=== PATIENT | female | born 1975 | race Caucasian/White ===

== ENCOUNTER 2016-08-02 07:47 | Emergency (ER) | payer BC ==
[2016-08-02] MEDS ORDERED: ORPHENADRINE CITRATE 30 MG/ML VIAL IM ONE (08:10)
[2016-08-02] MEDS ORDERED: KETOROLAC TROMETHAMINE 30 MG/ML VIAL IM ONE (08:10)
[2016-08-02] MEDS ORDERED: MORPHINE SULFATE 4 MG/ML SYRG IM ONE (08:10)
--- NOTE | 2016-08-02 08:21 | ERNOTE ---
Back Pain ER HPI Date of Service: 08/02/16 Presenting Symptoms: injury/pain to back Time Seen by Provider: 08/02/16 08:09 Source: patient Exam Limitations: no limitations Immunizations: IMMUNIZATION HX Immunizations Up to Date Yes History of Influenza Vaccine Yes Allergies/Adverse Reactions: Allergies latex Allergy (Severe, Verified 08/02/16 07:54) Hives codeine Adverse Reaction (Intermediate, Verified 08/02/16 07:54) Vomiting hydrocodone bitartrate [From Vicodin] Adverse Reaction (Intermediate, Verified 08/02/16 07:54) vomit Penicillins Adverse Reaction (Intermediate, Verified 08/02/16 07:54) vomit Sulfa (Sulfonamide Antibiotics) [Sulfa(Sulfonamide Antibiotics)] Adverse Reaction (Intermediate, Verified 08/02/16 07:54) Nausea Home Medications: HOME MEDICATIONS HYDROcodone/ACETAMINOPHEN [[place] 5-325] 1 each PO Q6H PRN #15 tablet 08/02/16 [ Last Taken Unknown] Narrative: Patient presents to the ED for low back pain. She realtes that yesterday she was walking th dog, tripped over the leash and had acute onset of low back pain. No actual fall, twisting motion. No acute focal N/T/W. No loss of bowel or bladder control. No abdominal pain. No urinary Sx. Has had back pain before. No direct blow. No fever. Left greater than right. No upper back pain. Took Alleve and Flexeril at home but it woke her up at 3am and has been hurting since then. No radiation of pain into the legs Timing: Reports: constant, other - fluctuating Quality/Severity: Reports: severe Location of pain: Reports: lower back, no radiation Recent Injury?: Reports: yes Possible Precipitating Factor: Reports: turning/bending Modifying Factors - (Improves): Reports: other - rest Modifying Factors - (Worsens): Reports: movement to right, movement to left, movement flexion. Denies: cough/deep breaths Associated Symptoms: Denies: fever/chills, constipation/incontinence, nausea/ vomiting, problems urinating, numbess/weakness in legs Prior Treament: Denies: recently seen Review of Systems - Review of Systems Constitutional: Absent: fever Respiratory: Absent: shortness of breath Cardiology: Absent: chest pain Gastrointestinal/Abdominal: Absent: abdominal pain Genitourinary: Absent: dysuria Musculoskeletal: Present: back pain Skin: Absent: rash Neurological: Absent: weakness, numbness - Patient's Past Medical History Patient History - Medical: Chronic Pain, Headache, Migraines Patient History - Cardiac/Respiratory: Asthma Patient History - Cancer: No Hx of Cancer Patient History - Surgical Procedures: Cholecystectomy, Other Patient History - Other: None LMP (Calendar): 12/23/14 - Social History Living Situations: home Abuse History: No History of abuse Psych History: No pertinent hx Does anyone smoke in the home?: No Alcohol Use: none Drug Use: none - Immunizations Immunizations Up to Date: Yes History of Influenza Vaccine: Yes Physical Exam - Physical Exam General Appearance: Present: alert, no apparent distress, other - pain with palpation of muscles of low back and with movement Eye Exam: Normal inspection: bilateral, PERRL: bilateral Ears, Nose, Throat: Present: normal ENT inspection Neck: Present: normal inspection Respiratory: Present: no respiratory distress, normal breath sounds, lungs clear Cardiovascular/Chest: Present: regular rate, rhythm Gastrointestinal/Abdominal: Present: normal bowel sounds, nontender, nondistended, soft. Absent: tenderness Back Exam: Present: normal inspection, no CVA tenderness, muscle spasm, other - There is completely reproducible tenderness paraspinal lumbar muscualture left and right. She is significantly tender here. No localizing point vertebral tenderness. No upper back tenderness.. Absent: CVA tenderness (R), CVA tenderness (L) Extremity Exam: Present: normal inspection, normal range of motion Neurological Exam: Present: alert, normal mood/affect, no motor/sensory deficits , oxyacetylene welder II-XII nml as tested, other - Sensation LT intact. Patellar tendon reflexes equal and symmetric. She can ambulate but antalgic. Can stand on toes and heels. No motor or sensory deficits. No evidence of cauda-equina syndrome. No focal motor or sensory deficits.. Absent: motor weakness Skin Exam: Present: normal color. Absent: skin rash ED Progress - Vital Signs Patient's Vital Signs:: I have reviewed the patient's vital signs. Vital Signs: Vital Signs 08/02/16 07:50 Temperature 37.2 C Pulse Rate 86 Respiratory 12 Rate Blood Pressure 113/60 O2 Sat by Pulse 99 Oximetry - X-Ray X-Ray #1 X-Ray: lumbosacral Interpretation: Interp. by me X-ray Comments: I reviewed official x-ray report. - Progress/Reassessment Chief Complaint: Back Pain Progress Note-Subjective: 08/02/16 09:18 Improved on re-check. She wishes to go home. She states she can take Pierce without allergic reaction but just takes half a pill. She would like some Vicodin to go home with. She has flexeril at home. Nothing to suggest infectious process, diskiitis or cauda equina syndrome. I discussed warning signs and reasons to return as well as the need for close f/u. Departure Clinical Impression: Musculoskeletal pain - Departure Disposition: Home self-care Condition: Stable Instructions: Back Pain, Adult Additional Instructions: Rest. You have indicated you can take hydrocodone and do not have an allergy. Take your Flexeril as directed. Use anti inflammatory also. Follow-up with your doctor within 48 hours for a re-check. Return here for fever, increased pain, numbness, tingling, weakness, trouble with bowel or bladder control or if your condition worsens or changes in any way. Referrals: Abel Mora MD [Primary Care Provider] - Prescriptions: HYDROcodone/ACETAMINOPHEN [[place] 5-325] 1 each PO Q6H PRN #15 tablet PRN Reason: Pain
[2016-08-02] MEDS ORDERED: MORPHINE SULFATE 4 MG/ML SYRG ONE (08:22)
[2016-08-02] MEDS ORDERED: ORPHENADRINE CITRATE 30 MG/ML VIAL ONE (08:22)
[2016-08-02] MEDS ORDERED: KETOROLAC TROMETHAMINE 30 MG/ML VIAL ONE (08:22)
[2016-08-02 09:38] VITALS: BP 97/55
== END 2016-08-02 09:50 | disposition home or self-care (01) ==
LOC: ER 07:47
DX: M79.1 Myalgia (principal); W01.0XXA Fall on same level from slipping, tripping and stumbling without subsequent striking against object, initial encounter; Y93.K1 Activity, walking an animal; Y92.9 Unspecified place or not applicable

== ENCOUNTER 2016-08-04 07:24 | Emergency (ER) | payer BC ==
[2016-08-04] MEDS ORDERED: NORMAL SALINE 1,000 ML IV ONE (08:03)
[2016-08-04] MEDS ORDERED: DIAZEPAM 5 MG TABLET PO ONE (08:04)
[2016-08-04] MEDS ORDERED: METHYLPREDNISOLONE SOD SUCC/PF 40 MG/ML VIAL IV ONE (08:04)
[2016-08-04] MEDS ORDERED: METHYLPREDNISOLONE SOD SUCC/PF 125 MG/2 ML VIAL ONE (08:04)
[2016-08-04] MEDS ORDERED: KETOROLAC TROMETHAMINE 30 MG/ML VIAL IV ONE (08:04)
[2016-08-04] MEDS ORDERED: DIAZEPAM 5 MG TABLET ONE (08:05)
[2016-08-04] MEDS ORDERED: KETOROLAC TROMETHAMINE 30 MG/ML VIAL ONE (08:05)
[2016-08-04] MEDS ORDERED: HYDROmorphone HCL 1 MG/ML DISP.SYRIN IV ONE (08:48)
[2016-08-04] MEDS ORDERED: HYDROmorphone HCL 1 MG/ML DISP.SYRIN ONE (08:49)
--- NOTE | 2016-08-04 10:55 | ERNOTE ---
Lower Extremity HPI - Narrative Date of Service: 08/04/16 - General Lower Extremities Pain: other: bilateral - Back Time Seen by Provider: 08/04/16 08:00 Source: patient Exam Limitations: no limitations - Immun/Allergies/Home Medications Immunizations: IMMUNIZATION HX Immunizations Up to Date Yes History of Influenza Vaccine Yes Hx Pneumococcal Vaccination No Allergies/Adverse Reactions: Allergies Allergy/AdvReac Type Severity Reaction Status Date / Time latex Allergy Severe Hives Verified 08/02/16 07:54 codeine AdvReac Intermediate Vomiting Verified 08/02/16 07:54 hydrocodone bitartrate AdvReac Intermediate vomit Verified 08/02/16 07:54 [From Vicodin] Penicillins AdvReac Intermediate vomit Verified 08/02/16 07:54 Sulfa (Sulfonamide AdvReac Intermediate Nausea Verified 08/02/16 07:54 Antibiotics) [Sulfa(Sulfonamide Antibiotics)] Home Medications: HOME MEDICATIONS HYDROcodone/ACETAMINOPHEN [[place] 5-325] 1 each PO Q6H PRN #15 tablet 08/02/16 [ Last Taken Unknown] predniSONE [Prednisone] 50 mg PO DAILY #5 tablet 08/04/16 [Last Taken Unknown] - History of Present Illness Narrative: Patient presents to the ED with back pain. i saw her yesterday for low back pain after she had tripped walking her dog the prior day. She relates that her pain is much worse today. She has bilateral LBP, worse with movement. More on the left than right. She has some pain radiating to her upper legs bilaterally. No loss of bowel or bladder control. No fever. No focal weakness but states her legs feel weak when she tries to walk. Pain severe, worse with movement. She last took the medications I gave her at 8pm last night. Occurred: other - 2 days ago Method of Injury: Reports: twisted Reason for Fall: Reports: other - tripped waling dog Loss of Consciousness: Reports: no loss of consciousness Modifying Factors - (Improves): Reports: rest Modifying Factors - (Worsens): Reports: movement Associated Symptoms: Denies: unable to bear weight Other Injuries: Reports: none Subsequent Symptoms: Denies: bowel/bladder problem Review of Systems - Review of Systems Constitutional: Absent: fever Respiratory: Absent: shortness of breath Cardiology: Absent: chest pain Gastrointestinal/Abdominal: Absent: abdominal pain Genitourinary: Absent: dysuria Musculoskeletal: Absent: neck pain Neurological: Present: See HPI - Patient's Past Medical History Patient History - Medical: Chronic Pain, Headache, Migraines Patient History - Cardiac/Respiratory: Asthma Patient History - Cancer: No Hx of Cancer Patient History - Surgical Procedures: Cholecystectomy, Other Patient History - Other: None LMP (Calendar): 12/23/14 - Social History Living Situations: home Abuse History: No History of abuse Psych History: No pertinent hx Does anyone smoke in the home?: No Smoking Status: Never smoker Have you smoked in the past 12 months: No Do you dip or chew tobacco: No Alcohol Use: none Drug Use: none - Immunizations Immunizations Up to Date: Yes Hx Pneumococcal Vaccination: No History of Influenza Vaccine: Yes Physical Exam - Physical Exam General Appearance: Present: alert, no apparent distress Eye Exam: Normal inspection: bilateral, PERRL: bilateral Ears, Nose, Throat: Present: normal ENT inspection Neck: Present: normal inspection Respiratory: Present: no respiratory distress, normal breath sounds, lungs clear Cardiovascular/Chest: Present: regular rate, rhythm Gastrointestinal/Abdominal: Present: normal bowel sounds, nontender, soft Rectal Exam: Present: nontender, normal rectal tone, other - with femal RN present. Rectal exam normal with good rectal tone. Back Exam: Present: other - There is significant muscular tenderness in the paraspinal muscualture low back, she grimaces with this.. Absent: CVA tenderness (R), CVA tenderness (L) Extremity Exam: Present: normal inspection Neurological Exam: Present: other - Patellar tendon reflexes equal and symmetric. Normal rectal tone. Pain does limit her exam somewhat but she has equal and symmetric dorsi and plantar flexion strngth ath the ankles and can hold her legs off the med against gravity. She is able to walk to the bathroom. Sensation to LT intact. I find no convincing evidence of focal motor or sensoryu deficit. Skin Exam: Present: normal color, warm/dry. Absent: skin rash ED Progress - Vital Signs Patient's Vital Signs:: I have reviewed the patient's vital signs. Vital Signs: Vital Signs 08/04/16 08/04/16 08/04/16 07:46 09:19 10:13 Temperature 37.4 C Pulse Rate 94 86 87 Respiratory 20 14 18 Rate Blood Pressure 123/63 O2 Sat by Pulse 100 100 100 Oximetry - CT/Ultrasound CT/Ultrasound Narrative: MRI report reviewed. - Progress/Reassessment Chief Complaint: Lower Extremity Pain/ Injury Progress Note-Subjective: 08/04/16 10:50 Given her significant Sx MRI obtained. This reveals no clear acute surgical process. No evidence of cauda equina syndrome and no clinically nothign to suggest this either. IV meds given and she could ambulate to the bathroom. An appointment was made for her tomorrow at 2:45 with her PCP and I feel she is stable to be discharged to see him tomorrow. I disucssed warning signs and reasons to return as well as the need for close f/u. She needs to take the prior medications I gave her in a scheduled fashion and I will add steroids. 08/04/16 10:55 Clinically this seems to be reproducible in the musculature. Nothing to suggest intra-abdominal process or urinary source. Departure Clinical Impression: Back pain - Departure Disposition: Home self-care Condition: Stable Instructions: Back Pain, Adult Additional Instructions: Rest. FLuids. Medications as directed, take in a scheduled manner. Return for loss of bowel or bladder control or if your condition worsens or changes in any way. Referrals: Abel Mora MD [Primary Care Provider] - Prescriptions: predniSONE [Prednisone] 50 mg PO DAILY #5 tablet
[2016-08-04 11:40] VITALS: BP 119/62
== END 2016-08-04 10:55 | disposition home or self-care (01) ==
LOC: ER 07:24
DX: M54.5 Low back pain (principal); M79.605 Pain in left leg; M79.604 Pain in right leg

== ENCOUNTER 2016-08-06 13:52 | Day surgery (SDC) | payer BC ==
--- NOTE | 2016-08-06 14:44 | OR ---
Anesthesia Pre Procedure Eval Pre Procedure Evaluation: Last Vital Signs Temp 36.7 C 08/06/16 13:59 Pulse 103 H 08/06/16 13:59 Resp 16 08/06/16 13:59 BP 103/72 08/06/16 13:59 Pulse Ox 99 08/06/16 13:59 PRE PROCEDURE EVALUATION:: DATE: 08/06/2016 TIME: 1440 INDICATIONS: Radicular low back pain. Bulging disc L4 5. PAST MEDICAL HISTORY: No previous lumbar epidural injections. EXAM: Lungs clear and equal. Heart rate regular. Patient complains of back pain that radiates into her left hip she has no right hip pain. ASSESSMENT OF MEDICAL STATUS: Procedure risks and benefits were explained except by the patient. No contraindication to epidural steroid injection. PLANNED PROCEDURE : Fluoroscopy-guided epidural steroid injection at L4 5. Home Medications: HOME MEDICATIONS HYDROcodone/ACETAMINOPHEN [[place] 5-325] 1 each PO Q6H PRN #15 tablet 08/02/16 [ Last Taken Unknown] predniSONE [Prednisone] 50 mg PO DAILY #5 tablet 08/04/16 [Last Taken Unknown] ALPRAZolam [Xanax] 0.5 mg PO HS 08/05/16 [Last Taken Unknown] Albuterol Sulfate [Albuterol Sulfate 2.5 MG/3 ML] 2.5 mg IH QID PRN 08/05/16 [ Last Taken Unknown] Albuterol Sulfate [Ventolin HFA] 2 puff IH Q4H PRN 08/05/16 [Last Taken Unknown] Ketorolac Tromethamine [Toradol] 10 mg PO Q6H PRN 08/05/16 [Last Taken Unknown]
[2016-08-06] MEDS ORDERED: LIDOCAINE HCL/PF 5 ML VIAL IJ ONE (14:51)
[2016-08-06] MEDS ORDERED: IOPAMIDOL 20 ML VIAL IJ ONE (14:51)
[2016-08-06] MEDS ORDERED: DEXAMETHASONE SOD PHOSPHATE 10 MG/ML VIAL IJ ONE (14:51)
--- NOTE | 2016-08-06 15:08 | OR ---
Anesthesia Procedure Note - Anesthesia Procedure Note Narrative: Vital Signs - Last Taken Temp 36.7 C 08/06/16 13:59 Pulse 97 08/06/16 14:55 Resp 16 08/06/16 14:55 BP 104/62 08/06/16 14:55 Pulse Ox 100 08/06/16 14:55 O2 Oxygen Delivery Method Room Air 08/06/16 15:05 ANESTHESIA PROCEDURE NOTE Date of Procedure: 08/06/2016 Time of procedure: 1450. Performed by: Oral Belle CRNA Sewer Line Photo Inspector: None. Preprocedure diagnosis: Radicular low back pain. Bulging disc L4 5. Post procedure diagnosis: Same. Procedure: Epidural Steroid Injection at L4 5. Indications: Radicular low back pain. Findings: See below. Details of the procedure: The patient was brought back to operating room #4. The patient was then placed in the prone position. Back was prepped with DuraPrep. Patient was then draped in sterile fashion. Lidocaine 1% was infiltrated to the skin and subcutaneous tissues at the level of the L4 5 interspace. The epidural space was identified using a 20-gauge Tuohy needle with [id number] technique and fluoroscopic guidance. A total of 2 mL of Isovue 200 contrast dye was injected into first the AP and lateral position to confirm needle placement. Dexamethasone 10 mg + 5 mL of 1% preservative- free lidocaine was administered to the epidural space after negative aspiration for blood and CSF. The Tuohy needle was removed intact. A Band-Aid was applied to the patient's back. The patient was then placed in a supine position for 5 minutes before returning to the ambulatory surgical unit. Total fluoroscopy time 16.5 seconds. Total dose 4.27 m/gy. EBL: Minimal. Fluids: N/A. Specimen: N/A. Post procedure condition: The patient tolerated the procedure well. No complications were noted. Thank you for this consultation. Oral Belle CRNA
[2016-08-06 15:39] VITALS: BP 109/68
== END 2016-08-06 13:53 | disposition home or self-care (01) ==
LOC: AMB 13:52
PROVIDERS: ATTEND Family Medicine
PROC: 3E0S3BZ Introduction of Anesthetic Agent into Epidural Space, Percutaneous Approach (ICD-10-PCS; 2016-08-06)
PROC: 3E0S33Z Introduction of Anti-inflammatory into Epidural Space, Percutaneous Approach (ICD-10-PCS; principal; 2016-08-06 14:30)
DX: M51.26 Other intervertebral disc displacement, lumbar region (principal)